=== PATIENT | male | born 1955 | race Caucasian/White ===

== ENCOUNTER 2020-03-26 06:26 | Outpatient (CLI) | payer BC, MEDICARE ==
[~2020-03-26 06:26] MED LIST: AMLO10TA8 PO; ASPI81TA45 PO; ATOR-2 PO; CARI250T PO; CARV12.52 PO; HYDR-3246 PO; LOSA25TA2 PO; PANT40TA6 PO; TICA90TA PO
== END 2020-03-26 23:59 | disposition home or self-care (01) ==
LOC: CVU 06:26 → UNMERGE 07:00 → MERGE 07:00 → CFH 23:59
PROVIDERS: ATTEND Internal Medicine Cardiovascular Disease
DX: I35.8 Other nonrheumatic aortic valve disorders (principal); I10 Essential (primary) hypertension; I25.10 Atherosclerotic heart disease of native coronary artery without angina pectoris; R06.02 Shortness of breath; I21.19 ST elevation (STEMI) myocardial infarction involving other coronary artery of inferior wall; I25.2 Old myocardial infarction; E78.5 Hyperlipidemia, unspecified; Z87.891 Personal history of nicotine dependence; Z95.818 Presence of other cardiac implants and grafts
CPT/HCPCS: 78452; 93017; 93306; 93356; A9502; J2785